=== PATIENT | female | born 1990 | race Caucasian/White ===

== ENCOUNTER 2016-07-07 18:12 | Emergency (ER) | payer MEDICAID, OTHER ==
[~2016-07-07] VITALS: Ht 157.5 cm; Wt 59.0 kg
[2016-07-07 18:15] VITALS: Ht 157.5 cm; Wt 59.0 kg
[2016-07-07] MEDS ORDERED: AZIT250T94 PO (18:58)
[2016-07-07] MEDS ORDERED: D-ME473S18 PO (18:58)
--- NOTE | 2016-07-07 19:58 | ERD ---
ER Documentation Chief Complaint Date/Time DATE: 07/07/16 TIME: 19:56 Chief Complaint chest congestion, throat pain, cough x 1 week HPI This is a 25-year-old female presents to the ER with a cough for the last 2 weeks. Over the last week patient states she has felt significantly worse and has a lot of chest congestion and throat pain. Patient has associated chest pain and shortness of breath secondary to severe and constant cough. She denies any chest pain shortness of breath otherwise. Her daughter was recently admitted for pneumonia. She does not have any fevers or chills. ROS 12 point review of systems was done, all negative except per HPI. Medications Home Meds Active Scripts Dextromethorphan Hb-Promethazine Hcl (Promethazine DM Syrup) 473 Ml Syrup, 10 ML PO Q6H Y for COUGH, #4 OZ Prov:PATEL FRANCO 07/07/16 Azithromycin* (Zithromax*) 250 Mg Tablet, 250 MG PO .ZPACK DIRECTED, #6 TAB TAKE 500 MG (2 TABS) THE FIRST DAY THEN 250 MG (1 TAB) DAYS 2-5 Prov:PATEL FRANCO 07/07/16 PMhx/Soc Medical and Surgical Hx: pt denies Medical Hx, pt denies Surgical Hx History of Surgery: No Anesthesia Reaction: No Hx Neurological Disorder: No Hx Respiratory Disorders: No Hx Cardiac Disorders: No Hx Psychiatric Problems: No Hx Miscellaneous Medical Probl: No Hx Alcohol Use: No Hx Substance Use: No Hx Tobacco Use: No Physical Exam Vitals Vital Signs Date Time Temp Pulse Resp B/P Pulse Ox O2 Delivery O2 Flow Rate FiO2 07/07/16 18:15 99.6 87 22 133/72 96 Physical Exam GENERAL: The patient is well-developed, well-nourished, in no acute distress. NECK: Cervical spine is non tender with no step off. Supple, no nuchal rigidity HEENT: Atraumatic. Pupils equal, round and reactive to light. Extraocular muscles are grossly intact. Conjunctivae pink, no discharge. Bilateral tympanic membranes are clear with no evidence of erythema, effusion or dulling of the light reflex. Tonsilar erythema with no exudates or uvular deviation. Clear rhinorrhea. RESPIRATORY: Clear to auscultation bilaterally. There are no rales, wheezes or rhonchi. HEART: Regular rate and rhythm. No murmurs, clicks, rubs or gallops. EXTREMITIES: No clubbing or cyanosis. Full range of motion. Grossly neurovascularly intact. NEUROLOGIC: Alert and oriented. Cranial nerves II through XII are intact. SKIN: There is no rash. The skin is warm and dry. Procedures/MDM EKG 86bpm no St elevation no t wave inversion. Differential diagnosis includes but is not limited to; Viral URI, allergic rhinitis, bronchitis, pertussis,pneumonia. This is likely bronchitis. Clinical suspicion for pneumonia is low as patient appears well, is not hypoxic or in any respiratory distress. Additionally, patients physical examination is benign. Plan was discussed with patient they understand and agree. Patient needs to follow up with PCP in 1-2 days or return to ER sooner if symptoms worsen. Departure Diagnosis: Primary Impression: Bronchitis Condition: Stable Patient Instructions: What Is Bronchitis? Additional Instructions: Llame al doctor MAANA y kareem linn WILSON PARA DENTRO DE 1-2 KLINE.Dgale a la secretaria que nosotros le instruimos hacer esta wilson.Avise o llame si stiles condicin se empeora antes de la wilson. Regresa aqui si peor o no mejor. PATEL FRANCO July 07, 2016 19:58
--- NOTE | 2016-07-07 20:48 | RADRPT ---
PROCEDURE: XR Chest. CLINICAL INDICATION: Cough. TECHNIQUE: Single frontal view. COMPARISON: None. FINDINGS: The lungs are clear. The heart size is normal. There is no pleural effusion. There is no pneumothorax. IMPRESSION: 1. Normal chest radiograph. RPTAT: QQ .Ehsan Rossi MD, Date Time Electronically viewed and signed by .Ehsan Rossi MD, on 07/07/2016 20:48 .R/
--- NOTE | 2016-07-07 21:14 | EN ---
Date/Time of Note Date/Time of Note DATE: 07/07/16 TIME: 21:13 ER Progress Note Patient was transferred to ma by Katie Schmidt PA-C pending x-ray results. Patient was stable for transfer. Her x-rays read by radiologist is unremarkable. Low suspicion for pneumonia, PE, pneumothorax, ACS, epiglottitis, obstruction, TB, pertussis, meningitis, sepsis. At this time, patient is stable for discharge and outpatient management with no new complaints during the ER course. Patient was sent home with azithromycin and promethazine as prescribed by Katie. Patient will be discharged home with instructions to recheck for new or worsening symptoms such as fever, nausea, weakness, LOC and to follow up with primary care in the next 1-2 days. Patient was advised to return to the ER for any new or worsening symptoms. Plan was discussed and patient and/or family understands and agrees. Home instructions were given. DEEJAY HECTOR PA-C July 07, 2016 21:14
== END 2016-07-07 21:30 | disposition home or self-care (01) ==
LOC: FTE 18:12
DX: J20.9 Acute bronchitis, unspecified (principal)
CPT/HCPCS: 71010; 93005; Z7502